=== PATIENT | male | born 1995 | race Two or more races ===

== ENCOUNTER 2017-04-07 22:27 | Emergency (ER) | payer OTHER ==
[~2017-04-07] VITALS: Ht 185.4 cm; Wt 108.9 kg
[2017-04-07 22:32] VITALS: BP 150/89
--- NOTE | 2017-04-07 22:40 | Emergency Room Report ---
History of Present Illness General Chief Complaint: Medical Clearance Source: Patient Present Illness HPI Is a 21-year-old male brought in by police and EMS for medical clearance. He was outside of a marijuana dispensary. He had a gun. He was very combative and agitated. He had to be restrained by police. Initially said that he only took marijuana. To me, he said that he may have taken methamphetamine. Denies suicidal thoughts or homicidal thought. He is combative and yelling however. Allergies: Coded Allergies: No Known Allergies (Unverified , 04/07/17) Patient History Past Medical History: see triage record, old chart reviewed Past Surgical History: other Pertinent Family History: none Social History: Reports: drug use Immunizations: other Reviewed Nursing Documentation: PMH: Agreed, PSxH: Agreed Nursing Documentation-PMH Past Medical History Deferred: Pt Cognitively Impaired Review of Systems Eye: Denies: eye pain, blurred vision ENT: Denies: ear pain, nose congestion, throat swelling Respiratory: Denies: cough, shortness of breath Cardiovascular: Denies: chest pain, palpitations Gastrointestinal: Denies: abdominal pain, diarrhea, nausea, vomiting Musculoskeletal: Denies: back pain, joint pain Skin: Denies: rash Neurological: Denies: headache, numbness Endocrine: Denies: increased thirst, increased urine Hematologic/Lymphatic: Denies: easy bruising All Other Systems: negative except mentioned in HPI Physical Exam Vital Signs Date Time Temp Pulse Resp B/P (MAP) Pulse Ox O2 Delivery O2 Flow Rate FiO2 04/07/17 22:19 99.3 132 20 150/89 100 Room Air vitals with tachycardia and hypertension Sp02 EP Interpretation: reviewed, normal General Appearance: well appearing, alert, other - Agitated, yelling Head: normocephalic, atraumatic Eyes: bilateral eye PERRL, bilateral eye EOMI ENT: hearing grossly normal, normal pharynx Neck: full range of motion, supple, no meningismus Respiratory: chest non-tender, lungs clear, normal breath sounds Cardiovascular #1: regular rate, rhythm, no murmur, tachycardia Gastrointestinal: normal bowel sounds, non tender, no mass, no organomegaly, no bruit, non-distended Musculoskeletal: back normal, normal range of motion Neurologic: alert, oriented x3 Psychiatric: no suicidal/homicidal ideation, other - Agitated Skin: warm/dry Medical Decision Making Diagnostic Impression: Primary Impression: Psychosis Qualified Codes: F23 - Brief psychotic disorder Additional Impression: Drug abuse ER Course This patient presents with acute agitation secondary to drug abuse. To me he admitted to methamphetamine. Denies any other drug use. He is much calmer after Ativan. Heart rate much improved and blood pressure much improved. We' ll observe until he clinically better. Afterward will discharge to police chief. Last Vital Signs Date Time Temp Pulse Resp B/P (MAP) Pulse Ox O2 Delivery O2 Flow Rate FiO2 04/07/17 22:19 99.3 132 20 150/89 100 Room Air Status: improved Disposition: D/C TO LAW ENFORCEMENT IN [facility] Condition: Stable Additional Instructions: Abstain from drugs and alcohol. Followup with your Dr. in 7 days. Return if symptom worsen. VIVIANE PEREZ M.D. Apr 07, 2017 22:40
[2017-04-07] MEDS ORDERED: LORazepam Inj 2mg/ml 1ml IM ONE (22:45)
[2017-04-07 23:10] VITALS: BP 154/88
== END 2017-04-07 23:13 ==
LOC: EDBD 22:27 → EMR 22:45
DX: F29 Unspecified psychosis not due to a substance or known physiological condition (principal); F15.10 Other stimulant abuse, uncomplicated; R00.0 Tachycardia, unspecified
CPT/HCPCS: 96372; 99283